=== PATIENT | male | born 1945 | race Caucasian/White ===

== ENCOUNTER → 2017-03-20 | Outpatient (CLI) | payer BC ==
[2017-02-02 18:00] VITALS: BP 138/58
[~2017-03-20] MED LIST: DOXY100C2 PO; HYDR-971 PO
--- NOTE | 2017-03-20 14:28 | RAD ---
Ankle brachial indices 03/20/2017 Indication: Slow healing right foot wound. Comparison study: None Discussion:. Bilateral brachial blood pressures, and left ankle pressures were obtained. Right ankle pressure could not be obtained secondary to wound VAC. Right brachial pressure 142 mmHg Left brachial pressure 121 mmHg Right ankle pressure: Unobtainable Right CAMERON: Unobtainable Left ankle pressure 155 mmHg Left CAMERON 1.09 (normal) Impression: 1. Unobtainable right CAMERON 2. Normal CAMERON on the left 3. 21 mmHg difference between right left brachial pressures. A pressure gradient greater than 20 between brachial arteries can be associated with subclavian arterial stenosis, in this case on the left. Correlate with clinical findings such as arm claudication, and consider CT as clinically indicated
--- NOTE | 2017-03-20 14:35 | RAD ---
Bilateral lower extremity arterial duplex ultrasound 03/20/2017 Indication: Slow healing right foot wound Comparison study: None Discussion: Ultrasound evaluation of the major arteries of the bilateral lower extremities was performed. Static images were submitted to PACS. Findings: Right lower extremity: There is diffuse atherosclerotic vascular disease. The common femoral artery is patent. Proximal superficial femoral artery is patent. Distal superficial femoral artery is patent. The popliteal artery appears to be grossly patent. Monophasic waveforms are noted in the posterior tibial, and anterior tibial arteries. Weak flow signal is seen in the peroneal artery. Left common femoral artery, proximal superficial femoral artery, and distal superficial femoral artery appear grossly patent. Left popliteal artery appears patent. Monophasic waveforms are noted in the posterior tibial and anterior tibial artery on the left. The dorsalis pedis artery by the patient's wound VAC. Weak flow signals noted in the peroneal artery. Impression: No sonographic evidence of significant femoral popliteal stenosis is identified. Shift to monophasic waveforms below the level of the popliteal artery bilaterally. Proximal tibial vessel or tibial peroneal trunk joint disease not excluded.
== END | disposition home or self-care (01) ==
LOC: US 12:53
PROVIDERS: ATTEND Podiatrist Foot & Ankle Surgery
DX: S91.301A Unspecified open wound, right foot, initial encounter (principal); E11.51 Type 2 diabetes mellitus with diabetic peripheral angiopathy without gangrene; I70.8 Atherosclerosis of other arteries; I10 Essential (primary) hypertension; X58.XXXA Exposure to other specified factors, initial encounter; Y93.89 Activity, other specified; Y92.89 Other specified places as the place of occurrence of the external cause; Y99.8 Other external cause status
CPT/HCPCS: 93922; 93925

== ENCOUNTER → 2017-04-03 | Outpatient (CLI) | payer BC | END | disposition home or self-care (01) | LOC: MRI 10:53 | DX: M00.871 Arthritis due to other bacteria, right ankle and foot (principal); M86.8X6 Other osteomyelitis, lower leg; L97.518 Non-pressure chronic ulcer of other part of right foot with other specified severity | CPT/HCPCS: 73718 ==

== ENCOUNTER → 2018-04-15 | Outpatient (CLI) | payer BC, OTHER ==
[2017-02-02 18:00] VITALS: BP 138/58
[~2018-04-15] MED LIST changes: +HYDR-3164 PO; -HYDR-971 PO
--- NOTE | 2018-04-15 16:35 | RAD ---
Left lower extremity venous duplex study 04/15/2018 Clinical History: Lower extremity pain, redness Technique: Using a combination of real time ultrasound imaging and color-flow and pulse Doppler imaging techniques, including spectral analysis, graded compression and augmentation, duplex evaluation of the deep venous system of the left lower extremity was performed. Multiple images were obtained. Findings: There is no sonographic evidence of deep venous thrombosis involving the visualized deep venous structures of the left lower extremity. Subcutaneous edema noted in the calf. Impression: No evidence of deep venous thrombosis involving the left lower extremity Electronically signed by: Ananda Molina MD (04/15/2018 4:31 PM) [id number]
== END | disposition home or self-care (01) ==
LOC: PMGWOUND 12:32
PROVIDERS: ATTEND Emergency Medicine Undersea and Hyperbaric Medicine
DX: E11.621 Type 2 diabetes mellitus with foot ulcer (principal); L97.522 Non-pressure chronic ulcer of other part of left foot with fat layer exposed; E11.69 Type 2 diabetes mellitus with other specified complication; M86.8X6 Other osteomyelitis, lower leg; M86.8X7 Other osteomyelitis, ankle and foot; E11.51 Type 2 diabetes mellitus with diabetic peripheral angiopathy without gangrene; E11.42 Type 2 diabetes mellitus with diabetic polyneuropathy; F41.9 Anxiety disorder, unspecified; I10 Essential (primary) hypertension; K21.9 Gastro-esophageal reflux disease without esophagitis; H91.90 Unspecified hearing loss, unspecified ear; J44.9 Chronic obstructive pulmonary disease, unspecified; E11.40 Type 2 diabetes mellitus with diabetic neuropathy, unspecified; E78.00 Pure hypercholesterolemia, unspecified; Z89.411 Acquired absence of right great toe; Z87.891 Personal history of nicotine dependence
CPT/HCPCS: 93971; 97597

== ENCOUNTER → 2018-04-22 | Outpatient (CLI) | payer OTHER ==
[2017-02-02 18:00] VITALS: BP 138/58
== END | disposition home or self-care (01) ==
LOC: PMGWOUND 12:33
PROVIDERS: ATTEND Emergency Medicine Undersea and Hyperbaric Medicine
DX: E11.621 Type 2 diabetes mellitus with foot ulcer (principal); L97.522 Non-pressure chronic ulcer of other part of left foot with fat layer exposed; R00.0 Tachycardia, unspecified; E11.69 Type 2 diabetes mellitus with other specified complication; M86.8X7 Other osteomyelitis, ankle and foot; M86.8X6 Other osteomyelitis, lower leg; E11.42 Type 2 diabetes mellitus with diabetic polyneuropathy; E11.51 Type 2 diabetes mellitus with diabetic peripheral angiopathy without gangrene; I10 Essential (primary) hypertension; L84 Corns and callosities; E78.00 Pure hypercholesterolemia, unspecified; F41.9 Anxiety disorder, unspecified; J44.9 Chronic obstructive pulmonary disease, unspecified; K21.9 Gastro-esophageal reflux disease without esophagitis; H91.90 Unspecified hearing loss, unspecified ear; Z87.891 Personal history of nicotine dependence; Z89.411 Acquired absence of right great toe
CPT/HCPCS: 97597

== ENCOUNTER → 2018-05-06 | Outpatient (CLI) | payer OTHER ==
[2017-02-02 18:00] VITALS: BP 138/58
== END | disposition home or self-care (01) ==
LOC: PMGWOUND 11:04
PROVIDERS: ATTEND Emergency Medicine Undersea and Hyperbaric Medicine
DX: E11.621 Type 2 diabetes mellitus with foot ulcer (principal); L97.522 Non-pressure chronic ulcer of other part of left foot with fat layer exposed; R00.0 Tachycardia, unspecified; E11.69 Type 2 diabetes mellitus with other specified complication; M86.8X7 Other osteomyelitis, ankle and foot; E11.42 Type 2 diabetes mellitus with diabetic polyneuropathy; E11.51 Type 2 diabetes mellitus with diabetic peripheral angiopathy without gangrene; L84 Corns and callosities; I10 Essential (primary) hypertension; F41.9 Anxiety disorder, unspecified; E78.00 Pure hypercholesterolemia, unspecified; H91.90 Unspecified hearing loss, unspecified ear; J44.9 Chronic obstructive pulmonary disease, unspecified; K21.9 Gastro-esophageal reflux disease without esophagitis; Z87.891 Personal history of nicotine dependence
CPT/HCPCS: 99214; G0463